=== PATIENT | female | born 1945 | race Caucasian/White ===

== ENCOUNTER 2016-07-20 07:03 | Day surgery (SDC) | payer OTHER ==
[~2016-07-20] VITALS: Ht 162.6 cm; Wt 96.6 kg
[~2016-07-20 07:03] MED LIST: HYDROCHLOROTHIA25 MG PO; LISINOPRIL20 MG PO; OMEPRAZOLE40 M1 PO; VITAMIN B122500 MCG PO; VITAMIN D-32000 UNI2 PO
[2016-07-20 07:51] VITALS: BP 118/68
[2016-07-20] MEDS ORDERED: NORCO 5/3251 TABLET PO ×3 (15:17→15:22)
[2016-07-20 17:30] VITALS: BP 104/58
[2016-07-20 18:25] VITALS: BP 104/55
[2016-07-20 20:24] VITALS: BP 120/58
[2016-07-20 20:50] VITALS: BP 92/51
== END 2016-07-20 20:55 | disposition home or self-care (01) ==
LOC: SDC 07:03 → NUC 09:00 → SDC 20:55
DX: C50.312 Malignant neoplasm of lower-inner quadrant of left female breast (principal); D05.12 Intraductal carcinoma in situ of left breast; I10 Essential (primary) hypertension; K21.9 Gastro-esophageal reflux disease without esophagitis; Z80.3 Family history of malignant neoplasm of breast
CPT/HCPCS: 78195; 78999; 88305; 88307; A9541; J0690; J1170; J2405; J2765; J3010